=== PATIENT | female | born 1985 | race Caucasian/White ===

== ENCOUNTER → 2024-01-09 16:15 | Outpatient (CLI) | payer BC, SELFPAY ==
--- NOTE | 2024-01-09 | DI.RAD.S_ITS ---
PROCEDURE: XR ACUTE ABDOMEN SERIES INDICATIONS: CONSTIPATION UNSPECIFIED TECHNIQUE: One view chest and two views of the abdomen were acquired. COMPARISON: None. FINDINGS: Surgical changes and devices: None. Chest: Lungs are clear. Heart size is normal. No pleural effusions. No pneumoperitoneum. Abdomen: Bowel gas pattern is nonobstructive. Moderate colonic stool. No suspicious calcifications. Visualized solid organ contours appear normal. Bones: No suspicious bony lesions. IMPRESSION: Constipation without obstruction. Dictated by: Valeria Dominguez M.D. on 01/10/2024 at 12:48 Approved by: Valeria Dominguez M.D. on 01/10/2024 at 12:48
== END ==
PROVIDERS: PCP Registered Nurse; Referring Provider Registered Nurse; Visit Provider Registered Nurse
DX: K59.00 Constipation, unspecified (principal); R10.30 Lower abdominal pain, unspecified
CPT/HCPCS: 74022